=== PATIENT | female | born 1940 | race Caucasian/White ===

== ENCOUNTER 2016-09-26 10:06 | Emergency (ER) | payer BC ==
--- NOTE | 2016-09-26 10:30 | ED.PDOC ---
History of Present Illness - General Chief Complaint: Lower Extremity Injury Stated Complaint: Mando meeks pain/swelling Time Seen by Provider: 09/26/16 10:26 Source: patient, RN notes reviewed, Vital Signs reviewed Exam Limitations: no limitations - History of Present Illness Initial Comments: Last night about 2029 she woke up from sleeping on the couch. Her foot was asleep but she had to go to the restroom When she stood up her foot rolled causing L lateral ankle pain and swelling. She iced it for about 2 hours before going back to bed. This morning the lateral aspect of her ankle/foot is swollen , bruised and tender. Reports she can walk on it without increased pain. No numbness or tingling. Occurred: yesterday Pain - Lower Extremity: moderate: Left Ankle Method of Injury: twisted Improving Factors: cold therapy, rest Worsening Factors: movement Review of Systems - Review of Systems Constitutional: States: no symptoms reported Respiratory: States: no symptoms reported Cardiology: States: no symptoms reported Gastrointestinal/Abdominal: States: no symptoms reported Musculoskeletal: States: see HPI, joint pain - L ankle, joint swelling - L ankle Skin: States: change in color - Bruising L lateral ankle All other Systems: No Change from Baseline Family Medical History - Family History Mother Family History: Unknown Physical Exam - Physical Exam General Appearance: Alert, Comfortable, No apparent distress, Well Developed, Well Groomed, Well Hydrated, Well Nourished Cardiovascular/Respiratory: normal peripheral pulses, no respiratory distress Leg: normal inspection, non-tender, no evidence of injury, normal ROM Knee: normal inspection, non-tender, no evidence of injury, normal ROM Ankle: ecchymosis, limited ROM, soft tissue tenderness, swelling, other - L lateral ankle. Foot: ecchymosis - Proximal, lateral foot, soft tissue tenderness, swelling Neuro/Tendon: normal sensation, normal motor functions, normal tendon functions Mental Status: alert, oriented x 3 Skin: normal color, warm/dry Progress - EKG/XRAY/CT XRAY: ankle - no fracture or dislocation, soft tissue swelling per Radiologist. Departure - Departure Clinical Impression: Sprain of left ankle or foot Time of Disposition: 10:53 Disposition: Discharge to Home or Self Care Condition: Good Departure Forms: ED Discharge - Pt. 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 Will give her off through the weekend. Advised to rest and keep foot elevated. She did not want a splint.
--- NOTE | 2016-09-26 10:48 | RAD ---
EXAM DESCRIPTION: Ankle,Left 3 Views CLINICAL HISTORY: Twisted last night, now swollen and bruised lat. COMPARISON: None. IMPRESSION: 3 views of the left ankle show diffuse osteopenia of the osseous structures. No acute fracture, focal bone destruction, or joint dislocation is seen. The ankle mortise is maintained. Mild soft tissue swelling over the lateral malleolus is seen. Electronically signed by: Jonny Shook MD 09/26/2016 10:48 AM CDT Workstation: [email or web address]
[2016-09-26 10:51] VITALS: TEMP 98.7
[2016-09-26 11:11] VITALS: BP 206/104; O2SAT 99
== END 2016-09-26 11:11 | disposition home or self-care (01) ==
LOC: ER 10:06
DX: S93.402A Sprain of unspecified ligament of left ankle, initial encounter (principal); X50.1XXA Overexertion from prolonged static or awkward postures, initial encounter; Y92.008 Other place in unspecified non-institutional (private) residence as the place of occurrence of the external cause